=== PATIENT | female | born 1960 ===

== ENCOUNTER 2018-03-19 08:27 | Day surgery (SDC) | payer OTHER ==
[2018-03-19 09:28] VITALS: BMI 18.8
[2018-03-19 09:49] VITALS: O2SAT 100
[2018-03-19] MEDS ORDERED: Midazolam 2 MG/2 ML VIAL ONE (10:18)
[2018-03-19] MEDS ORDERED: Propofol 10 mg/ml Inj (20 ML) ONE ×4 (10:18→11:00)
[2018-03-19 11:36] VITALS: TEMP 96.8
[2018-03-19 13:13] VITALS: BP 125/67; PULSE 68; RESP 14
== END 2018-03-19 12:30 | disposition home or self-care (01) ==
LOC: EDBD 08:27 → C.ENDO 08:27
PROVIDERS: ATTEND Internal Medicine Gastroenterology
DX: D12.5 Benign neoplasm of sigmoid colon (principal); R63.4 Abnormal weight loss; K64.8 Other hemorrhoids; K44.9 Diaphragmatic hernia without obstruction or gangrene; B96.81 Helicobacter pylori [H. pylori] as the cause of diseases classified elsewhere; K29.70 Gastritis, unspecified, without bleeding; K29.80 Duodenitis without bleeding; K25.9 Gastric ulcer, unspecified as acute or chronic, without hemorrhage or perforation
CPT/HCPCS: 43239; 45385; 88305; J2001; J2250; J2704